=== PATIENT | male | born 1955 | race African-American/Black ===

== ENCOUNTER → 2018-02-15 | Day surgery (SDC) | payer BC ==
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
[2018-02-14 15:27] VITALS: BMI 25.2
[~2018-02-15] MED LIST: Clindamycin/D5W 900 mg/50 ml Premix Bag ONE; Fentanyl 100 MCG/2 ML VIAL ONE; Glycopyrrolate 0.2 MG/ML 5 ML SYRINGE ONE; Ketorolac Tromethamine 30 MG/ML VIAL ONE; Levofloxacin 500 mg/D5W 100 ml Premix Bag ONE; Lidocaine 1% PF 5 ML VIAL ONE; Metoclopramide HCl 10 MG/2 ML VIAL ONE; Ondansetron PF 4 MG/2 ML Vial ONE; PHENYLEPHRINE-NS 100 MCG/ML 10 ML SYRINGE ONE; PROPOFOL 200 MG/20 ML VIAL ONE; Sodium Chloride 0.9% 10 ML ONE; Thrombin 5000 UNITS/5 ML VIAL ONE; ePHEDrine/0.9% NaCl/PF SYRINGE 50 mg/10 ml ONE
[2018-02-15 12:10] LABS: #Basophils 0.1 thou/uL (0.0-0.2); #Eosinphils 0.3 thou/uL (0.0-0.7); #Lymphocytes 2.9 thou/uL (1.20-3.40); #Monocytes 0.6 thou/uL (0.11-0.59); #Neutrophils 5.9 thou/uL (1.40-6.50); %Basophils 1.1 % (0.0-1.0); %Eosinophils 3.5 % (0.0-10.0); %Monocytes 5.6 % (0.0-10.0); %Neutrophils 59.9 % (42.0-75.0); Hemoglobin 14.1 g/dL (14.0-18.0); Mean Corpuscular HGB CONC 32.8 g/dL (32.0-36.0); Mean Corpuscular Hemoglobin 30.2 pg (27.0-31.0); Mean Platelet Volume 7.7 fL (7.4-10.4); Platelet Count 224 thou/uL (130-400); RBC Distribution Width 11.3 % (11.5-14.5); Red Blood Cell (RBC) Count 4.69 mill/uL (4.70-6.10); White Blood Cell (WBC) Count 9.8 thou/uL (4.8-10.8)
[2018-02-15 12:17] LABS: INR-International Normal Ratio 0.9; PTT 29.1 SEC (22.9-36.1); Prothrombin Time 12.4 SEC (12.0-14.7)
[2018-02-15 12:32] LABS: Anion Gap 10 mmol/L (10-20); BUN (Urea Nitrogen) 10 mg/dL (8.4-25.7); Calc. Creatinine Clearance 86 mL/min (70-130); Calcium 9.5 mg/dL (7.8-10.44); Carbon Dioxide 30 mmol/L (23-31); Chloride 104 mmol/L (98-107); Estimated GFR-MDRD Greater than 90; Glucose 93 mg/dL (80-115); Potassium 3.7 mmol/L (3.5-5.1); Sodium 140 mmol/L (136-145)
--- NOTE | 2018-02-15 14:33 | EKG ---
Test Reason : PREOP Blood Pressure : / mmHG Vent. Rate : 063 BPM Atrial Rate : 063 BPM P-R Int : 190 ms QRS Dur : 082 ms QT Int : 410 ms P-R-T Axes : 068 062 124 degrees QTc Int : 419 ms Normal sinus rhythm Minimal voltage criteria for LVH, may be normal variant T wave abnormality, consider lateral ischemia Abnormal ECG No previous ECGs available Confirmed by ALFRED PENA, SNey ([id number]) on 02/15/2018 2:33:15 PM Referred By: HEYDI Confirmed By:DR. Elle SIMON MD
--- NOTE | 2018-02-16 00:47 | OP ---
DATE OF PROCEDURE: 02/15/2018 CONCRETE PAVEMENT INSTALLER: Melva Hernadez PA-C OPERATIVE INDICATION: PREOPERATIVE DIAGNOSIS: Left C8 radiculopathy from intervertebral disk disease at C7-T1. POSTOPERATIVE DIAGNOSIS: Left C8 radiculopathy from intervertebral disk disease at C7-T1. PROCEDURE PERFORMED: 1. Anterior cervical diskectomy. 2. Intervertebral arthrodesis. 3. Placement of intervertebral biomechanical device, local morcellized autograft and anterior cervical plating, C7-T1 and operating microscope. MEDICATIONS: 1. Clindamycin 900 mg IV. 2. Levaquin 500 mg IV. DRAINS: Zero. DRAIN TYPE: None. DESCRIPTION OF PROCEDURE: The patient was brought to the operating room. General endotracheal anesthesia was induced. The patient's head was carefully positioned into the [place], wedge-shaped headrest and a lateral fluoro radiograph was used to plan our incision. The right side of the neck was sterilely prepped and draped. We opened with a 10 blade knife, controlled the bleeding with bipolar and monopolar cautery. We dissected sharply through to the platysma and then cut this muscle in line with our incision. We continued our dissection medial to the sternocleidomastoid and lateral to the trachea and esophagus all the way down to the prevertebral space. We placed a marker at C6-C7, took a lateral fluoro-radiograph to confirm the level of spine which we were operating. We then elevated the longest colli muscles of the anterior cervix of C7 and T1 and placed a self-retaining retractor beneath them. We placed distraction pins at C7 and T1 and distracted across the intervening interspace with a [place] distractor. We incised the interspace with a 15 blade knife and removed the contents using curettes and rongeurs. The operating microscope was brought into the field. Under microscopic navigation and using microsurgical techniques, we removed the remainder of the intervertebral disk. We accessed the ventral epidural space with a microcurette and using a Kerrison rongeur, removed posterior osteophytes and posterior longitudinal ligament across the entire interspace from one neural foramen all the way to the other. After completion of our decompression, there was no further disk material in either foramen and the nerves were widely decompressed. We irrigated with bacitracin irrigation. We prepared the endplates for grafting using curettes and a bone rasp. We measured the height of the interspace to 7 mm. A 7 mm intervertebral graft was brought into the field. This PEEK intervertebral graft was loaded with demineralized bone matrix and morcellized autograft. The autograft was prepared in the back table from osteophytectomies. These osteophytes were cleaned of soft tissue attachments, morcellized, and added to demineralized bone matrix The PEEK graft was advanced in the interspace under radiographic guidance to the appropriate depth. We then removed our distraction pins. Operating microscope was taken out of the field. A 14 mm anterior cervical plate was brought into the field. We drilled bilateral holes through the plate into the vertebral segments of C7 and T1. We fixed the plates using 14 mm screws. Variable angle screws were used at C7 and fixed angle screws at T1. We engaged locking mechanism over each of other 4 screws. We irrigated copiously with bacitracin irrigation. AP and lateral fluoro radiographs confirmed adequate position of our instrumentation. We closed the wound in anatomical layers. We applied a sterile dressing. This is a clean case of contamination. Job ID: [id number]
== END ==
LOC: SDC 10:53
PROVIDERS: ATTEND Neurological Surgery
PROC: 0RG40A0 Fusion of Cervicothoracic Vertebral Joint with Interbody Fusion Device, Anterior Approach, Anterior Column, Open Approach (ICD-10-PCS; principal; 2018-02-15)
PROC: 0RT50ZZ Resection of Cervicothoracic Vertebral Disc, Open Approach (ICD-10-PCS; principal; 2018-02-15)
DX: M50.13 Cervical disc disorder with radiculopathy, cervicothoracic region (principal); I10 Essential (primary) hypertension; E78.00 Pure hypercholesterolemia, unspecified; C61 Malignant neoplasm of prostate; E11.36 Type 2 diabetes mellitus with diabetic cataract; K21.9 Gastro-esophageal reflux disease without esophagitis; F17.210 Nicotine dependence, cigarettes, uncomplicated; Z79.82 Long term (current) use of aspirin; Z79.84 Long term (current) use of oral hypoglycemic drugs; Z91.041 Radiographic dye allergy status; Z88.0 Allergy status to penicillin; Z91.013 Allergy to seafood; Z79.899 Other long term (current) drug therapy
CPT/HCPCS: 76001; 80048; 85025; 85610; 85730; 93005; 93010; C1713; C1776; J1885; J1956; J2001; J2405; J2704; J2765; J3010; J3490

== ENCOUNTER 2020-05-05 10:00 | Inpatient (IN) | payer MEDICARE, BC ==
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
[2020-05-19] MEDS ORDERED: Levofloxacin 500 mg/D5W 100 ml Premix Bag ONE (06:07)
[2020-05-19] MEDS ORDERED: Clindamycin/D5W 900 mg/50 ml Premix Bag ONE ×2 (06:07→17:32)
[2020-05-19] MEDS ORDERED: Bupivacaine PF 0.5% 30 ML VIAL ONE (06:09)
[2020-05-19] MEDS ORDERED: Thrombin 5000 UNITS/5 ML VIAL ONE (06:10)
[2020-05-19] MEDS ORDERED: EPINEPHrine 1 MG/ML AMP ONE (06:10)
[2020-05-19] MEDS ORDERED: Midazolam HCl 2 mg/2 ml Vial ONE (06:37)
[2020-05-19] MEDS ORDERED: Dexmedetomidine 200 MCG/2 ML VIAL ONE (06:40)
[2020-05-19] MEDS ORDERED: Fentanyl 250 MCG/5 ML VIAL ONE (06:40)
[2020-05-19] MEDS ORDERED: Ketamine 50 MG/ML (10ML VIAL) ONE (06:40)
[2020-05-19] MEDS ORDERED: Albumin 5% 500 ML ONE (06:41)
[2020-05-19 06:43] LABS: INR-International Normal Ratio 0.9; PTT 29.4 sec (22.9-36.1); Prothrombin Time 12.6 sec (12.0-14.7)
[2020-05-19] MEDS ORDERED: HYDROcodone/Acetaminophen 10/325 mg Tablet PO PRN (06:44)
[2020-05-19] MEDS ORDERED: Tamsulosin HCl 0.4 MG CAP PO PRN (06:46)
[2020-05-19] MEDS ORDERED: Acetaminophen 325 MG TAB PO PRN (06:46)
[2020-05-19] MEDS ORDERED: Scopolamine 1.5 mg/72 hour Patch TD PRN (06:46)
[2020-05-19] MEDS ORDERED: Promethazine 25 MG TAB PO PRN (06:46)
[2020-05-19] MEDS ORDERED: traMADol HCl 50 MG TAB PO PRN (06:46)
[2020-05-19] MEDS ORDERED: diphenhydrAMINE 25 MG CAP PO PRN (06:46)
[2020-05-19] MEDS ORDERED: Promethazine HCl 25 MG/ML VIAL IM PRN ×2 (06:46→12:14)
[2020-05-19] MEDS ORDERED: tiZANidine HCl 4 MG TAB PO PRN (06:46)
[2020-05-19 06:49] LABS: Anion Gap 13 mmol/L (10-20); BUN (Urea Nitrogen) 11 mg/dL (8.4-25.7); Calc. Creatinine Clearance 88 mL/min (70-130); Calcium 8.9 mg/dL (7.8-10.44); Carbon Dioxide 28 mmol/L (23-31); Chloride 104 mmol/L (98-107); Glucose 130 mg/dL (80-115); Potassium 4.3 mmol/L (3.5-5.1); Sodium 141 mmol/L (136-145)
[2020-05-19] MEDS ORDERED: Cyclobenzaprine 10 MG TAB PO PRN (07:55)
[2020-05-19] MEDS ORDERED: Phenylephrine 10 MG/ML VIAL ONE (08:26)
[2020-05-19] MEDS ORDERED: Dexamethasone 20 MG/5 ML VIAL ONE (10:02)
[2020-05-19] MEDS ORDERED: Lidocaine 1% PF 5 ML VIAL ONE (10:02)
[2020-05-19] MEDS ORDERED: PHENYLEPHRINE-NS 100 MCG/ML 10 ML SYRINGE ONE (10:02)
[2020-05-19] MEDS ORDERED: Vecuronium 10 MG VIAL ONE ×2 (10:02→11:29)
[2020-05-19] MEDS ORDERED: Rocuronium Bromide 10 MG/ML (10ML VIAL) ONE (10:02)
[2020-05-19] MEDS ORDERED: Ondansetron PF 4 MG/2 ML Vial ONE (10:02)
[2020-05-19] MEDS ORDERED: ePHEDrine 50 MG/ML VIAL ONE (10:02)
[2020-05-19] MEDS ORDERED: PROPOFOL 200 MG/20 ML VIAL ONE (10:02)
[2020-05-19] MEDS ORDERED: Metoclopramide HCl 10 MG/2 ML VIAL ONE (10:02)
[2020-05-19] MEDS ORDERED: SUGAMMADEX SODIUM 200 MG/2 ML VIAL ONE (11:59)
[2020-05-19] MEDS ORDERED: Morphine Sulfate 2 MG/ML SYRINGE SLOW IVP PRN (12:14)
[2020-05-19] MEDS ORDERED: HYDROmorphone 2 MG/ML VIAL SLOW IVP PRN (12:14)
[2020-05-19] MEDS ORDERED: Ondansetron HCl/PF 4 MG/2 ML Vial IVP PRN (12:14)
[2020-05-19] MEDS ORDERED: PACU-Morphine 4MG/ML VIAL SLOW IVP PRN (12:14)
[2020-05-19] MEDS ORDERED: Promethazine HCl 25 MG/ML VIAL SLOW IVP PRN (12:14)
--- NOTE | 2020-05-19 12:44 | OP ---
DATE OF PROCEDURE: 05/19/2020 REGULATORY COMPLIANCE DIRECTOR: BONIFACIO Posadas PREOPERATIVE INDICATION: Treat pain and prevent neurological deterioration. PREOPERATIVE DIAGNOSES: 1. L3-L4 lumbar stenosis with lateral recess disease and intervertebral disk herniation on the right. 2. L5-S1 foraminal stenosis from collapsed L5-S1 disk and pedicle on sacrum compression. POSTOPERATIVE DIAGNOSES: 1. L3-L4 lumbar stenosis with lateral recess disease and intervertebral disk herniation on the right. 2. L5-S1 foraminal stenosis from collapsed L5-S1 disk and pedicle on sacrum compression. PROCEDURES PERFORMED: 1. Decompressive laminectomy, medial facetectomy, foraminotomy at L3-L4. 2. Right L3-L4 microdiskectomy. 3. Decompressive laminectomy with wide foraminotomy at L5-S1. 4. Transforaminal lumbar interbody arthrodesis, L5-S1. 5. Pedicle screw and helena instrumentation, L5-S1. 6. Posterolateral arthrodesis, L5-S1. 7. Placement of intervertebral biomechanical device, L5-S1. 8. Local morselized autograft and morselized allograft. 9. Operating microscope. PREOPERATIVE MEDICATIONS: Levaquin 500 mg IV, clindamycin 900 mg IV. DRAIN NUMBER: Zero. DRAIN TYPE: None. DESCRIPTION OF PROCEDURE: The patient was brought to the operating room. General endotracheal anesthesia was induced. The patient was positioned prone on the Donnie frame with the appropriate padding for the chest and hips. A lateral fluoro radiograph was used to plan our incision. The lumbar skin was sterilely prepped and draped. We opened a midline incision with a 10 blade knife and we controlled bleeding with bipolar and monopolar cautery. We used monopolar cautery to dissect through subcutaneous tissues to the thoracodorsal fascia. We incised the fascia in the midline and reflected paraspinal muscles off the spinous process and the lamina of L3, L4, L5, and S1. Self-retaining retractors were placed. A lateral fluoro radiograph confirmed the levels upon which we were operating. We then turned our attention to L3-L4. He removed the L3 spinous process and the top of the L4 lamina. Kerrison rongeur was used to fashion a laminectomy. We widened our laminectomy defect to decompress the lateral recesses by performing medial facetectomies on both sides. We then brought the operating microscope into the field. Under microscopic magnification using microsurgical techniques, we carefully retracted the thecal sac medially from the right toward the midline. There was an intervertebral disk protrusion at the interspace and inferiorly migrated. We incised the protruding portion of the disk and removed disk contents using curettes and rongeurs. We released the L4 nerve root and there was no longer under any stretch. We irrigated bacitracin irrigation. A Jarvis ball probe was passed through the lateral recess and out of the spine with the L3 and L4 nerve roots and there was no compression. We turned our attention at L5-S1. We kept the operating microscope in. We removed the spinous process of L5 and the superior portion of the sacrum. We fashioned a laminectomy with Kerrison rongeurs and widen our laminectomy defect to decompress the S1 nerve roots and the lateral recess by performing medial facetectomies on both sides. We performed wide foraminotomies over the L5 nerve root. The left-sided L5 nerve root was very compressed between the pedicle of L5 and the top of the sacrum. We performed a complete facetectomy on this side and accessed the intervertebral space. We removed disk contents using curettes and rongeurs. We measured the height of the interspace to 8 mm with a rectangular bone rasp. We brought a PEEK intervertebral biomechanical device into the field. This was loaded with demineralized bone matrix and morselized autograft. The autograft was obtained from our laminectomy bone, which was cleaned of soft tissue attachments, morselized and added to demineralized bone matrix as our fusion substrate. With the PEEK device loaded with bone graft, it was advanced into the interspace under radiographic guidance to the appropriate depth. We turned our attention to pedicle screw instrumentation. Using bony anatomic landmarks, palpation of the medial portion of the pedicles, and a lateral fluoro radiograph as our guide, we chose entry points for pedicle screws at L5 and S1 bilaterally. This was done after removal of the microscope. We drilled out our entry points and used a bone awl to advance through the pedicles into the vertebral bodies. We tapped our trajectories with a threaded tap and probed them and found them completely encased in bone. We placed 6.5 mm diameter pedicle screws at L5 and S1 bilaterally. A 360-degree image set was generated with our isocentric C-arm. This confirmed adequate positioning of our pedicle screw instrumentation. We then irrigated in the posterior lateral recess on both sides with bacitracin irrigation. We decorticated the transverse process of L5 and the sacral ala on either side and over the decorticated bone, we left demineralized bone matrix, morselized autograft. This was our posterolateral fusion substrate. We brought rods into the field and dropped them into the screw heads. We tightened caps over the rods and using a torque/counter-torque mechanism, we ensured adequate tightness. We provided gentle compression across the interspace to keep our interbody graft in place prior to final tightening. We then irrigated the center wound with bacitracin irrigation. We infused local anesthetic in the paraspinal muscles. We closed the wound in anatomical layers after vancomycin powder was applied. This was a clean case, no contamination. Job ID: [id number]
[2020-05-19] MEDS ORDERED: Fentanyl 100 MCG/2 ML VIAL ONE ×2 (12:45→16:44)
[2020-05-19] MEDS ORDERED: HYDROmorphone 0.5 MG/0.5 ML SYRINGE ONE (13:44)
[2020-05-19] MEDS ORDERED: tiZANidine HCl 4 MG TAB ONE (14:09)
[2020-05-19] MEDS: Clindamycin/D5W 900 MG in Premix Bag 1 BAG IVPB SCH ×3 (17:40→23:13)
[2020-05-19 18:14] VITALS: BMI 26.5
[2020-05-19] MEDS: Sodium Chloride 0.9% 1,000 ML IV SCH (18:27)
[2020-05-19] MEDS: metFORMIN 500 MG TAB PO SCH ×2 (19:32→19:40)
[2020-05-19] MEDS: Glimepiride 2 MG TAB PO SCH (19:32)
[2020-05-19] MEDS: Potassium Chloride 10 MEQ TAB PO SCH (19:32)
[2020-05-19] MEDS: Amlodipine 5 MG TAB PO SCH ×2 (19:33→19:51)
[2020-05-19] MEDS: Lisinopril 20 MG TAB PO SCH ×2 (19:33→19:50)
[2020-05-19] MEDS: Metoprolol Tartrate 100 MG TAB PO SCH ×2 (19:33→20:00)
[2020-05-19] MEDS: Morphine 2 MG/ML VIAL SLOW IVP PRN (19:45)
[2020-05-19] MEDS ORDERED: Atorvastatin Calcium 20 MG TAB PO SCH (21:00)
[2020-05-20] MEDS: Sodium Chloride 0.9% 1,000 ML IV SCH ×2 (00:46→07:09)
[2020-05-20] MEDS: Morphine 2 MG/ML VIAL SLOW IVP PRN ×3 (01:06→09:30)
--- NOTE | 2020-05-20 07:23 | PRG ---
DATE OF SERVICE: 05/20/2020 I saw Nazario Perry in his hospital room this morning. He is one day out from decompression and fusion of lumbar spine. His back is sore, but he is not having any leg pain. I do not see any fevers recorded. Blood pressures have been in the 100s to 140s. There are no neurological deficits in the lower extremities. Mr. Perry will mobilize today. If he is safe for his activities of daily living, he can go home. Job ID: [id number]
[2020-05-20] MEDS: Amlodipine 5 MG TAB PO SCH (09:37)
[2020-05-20] MEDS: metFORMIN 500 MG TAB PO SCH ×2 (09:37→17:04)
[2020-05-20] MEDS: Glimepiride 2 MG TAB PO SCH (09:37)
[2020-05-20] MEDS: Potassium Chloride 10 MEQ TAB PO SCH (09:37)
[2020-05-20] MEDS: Metoprolol Tartrate 100 MG TAB PO SCH (09:38)
[2020-05-20] MEDS: Lisinopril 20 MG TAB PO SCH (09:38)
[2020-05-20 12:45] VITALS: BP 130/60; TEMP 98.7
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
[2020-05-20] MEDS: Hyoscyamine Sulfate SL 0.125 mg Tablet SL SCH ×2 (13:53→17:04)
[2020-05-20] MEDS ORDERED: Dextrose 5% in Water 1,000 ML IV PRN (14:26)
[2020-05-20] MEDS ORDERED: HumaLOG 300 UNITS/3 ML VIAL SC PRN ×2 (14:26)
[2020-05-20] MEDS ORDERED: Dextrose 50% Abboject 50 ML SYRINGE SLOW IVP PRN (14:26)
--- NOTE | 2020-05-21 11:40 | DIS ---
DATE OF ADMISSION: 05/19/2020 DATE OF DISCHARGE: 05/20/2020 HOSPITAL COURSE: Mr. Perry is a 64-year-old gentleman, who has a history of lower back pain for many years. He underwent a lumbar fusion. Following the surgery, he was transitioned to the Med/Surg floor, where his pain has been well controlled with p.o. medications. He is tolerating a regular diet, and he is voiding appropriately. He is otherwise doing well and ambulating easily in the hallways and feels that he is ready to go home today. On exam today, he is awake and alert, in no acute distress. He has free active range of motion of all extremities. No focal motor weakness. No reflex asymmetry. His incision is clean, dry, and intact. We will plan to dismiss the patient home, pending Physical Therapy's notes. I have discussed home care precautions with him. CONDITION ON DISCHARGE: The patient had no emergencies. Condition was stable for discharge. MEDICATIONS: Home going medications were reviewed. FOLLOWUP: Followup arrangements made by our managed care coordinator in the clinic and called to the patient. ACTIVITIES: Restrictions were reviewed in person. Wound care showers are acceptable. The patient should pat the incision dry, but not submerge it under the surface of the body of water for one month. Job ID: [id number]
== END 2020-05-20 18:44 | disposition home or self-care (01) | DRG 455 ==
LOC: SURG A 05-19 05:27 → ONC 05-19 17:55
PROVIDERS: ADMIT Neurological Surgery; ATTEND Emergency Medicine
PROC: 0SG30AJ Fusion of Lumbosacral Joint with Interbody Fusion Device, Posterior Approach, Anterior Column, Open Approach (ICD-10-PCS; principal; 2020-05-19)
PROC: 0SG3071 Fusion of Lumbosacral Joint with Autologous Tissue Substitute, Posterior Approach, Posterior Column, Open Approach (ICD-10-PCS; 2020-05-19)
PROC: 0SB20ZZ Excision of Lumbar Vertebral Disc, Open Approach (ICD-10-PCS; 2020-05-19)
PROC: 01NB0ZZ Release Lumbar Nerve, Open Approach (ICD-10-PCS; 2020-05-19)
DX: M48.07 Spinal stenosis, lumbosacral region (principal); M48.061 Spinal stenosis, lumbar region without neurogenic claudication; M51.26 Other intervertebral disc displacement, lumbar region; M51.16 Intervertebral disc disorders with radiculopathy, lumbar region; Z20.822 Contact with and (suspected) exposure to COVID-19; J30.2 Other seasonal allergic rhinitis; E78.00 Pure hypercholesterolemia, unspecified; G89.29 Other chronic pain; C61 Malignant neoplasm of prostate; E11.9 Type 2 diabetes mellitus without complications; I10 Essential (primary) hypertension; F41.9 Anxiety disorder, unspecified; F32.9 Major depressive disorder, single episode, unspecified; K21.9 Gastro-esophageal reflux disease without esophagitis; Z87.891 Personal history of nicotine dependence; Z79.84 Long term (current) use of oral hypoglycemic drugs; Z79.82 Long term (current) use of aspirin; Z79.899 Other long term (current) drug therapy; Z88.0 Allergy status to penicillin; Z91.041 Radiographic dye allergy status; Z91.013 Allergy to seafood
CPT/HCPCS: 36415; 36416; 76000; 80048; 85610; 85730; 86850; 86900; 86901; 93005; 93010; C1713; C1768; J0171; J1100; J1170; J1956; J2250; J2270; J2370; J2405; J2704; J2765; J3010; J3370; J3490; P9045; S0020

== ENCOUNTER 2020-05-14 15:30 | Outpatient (CLI) | payer MEDICARE, BC ==
[2020-05-14 15:52] LABS: Hemoglobin 13.4 g/dL (13.5-17.5); Mean Corpuscular HGB CONC 32.3 g/dL (32.0-36.0); Mean Platelet Volume 10.6 fl (7.4-10.4); Platelet Count 270 10x3/uL (150-450); RBC Distribution Width 12.2 % (11.5-14.5); Red Blood Cell (RBC) Count 4.46 10x6/uL (4.32-5.72); White Blood Cell (WBC) Count 8.7 10x3/uL (3.5-10.5)
[2020-05-15 01:57] LABS: SARS-CoV-2 PCR by NAA Not Detected (NotDetected)
== END 2020-05-14 15:31 | disposition home or self-care (01) ==
LOC: LABBT 15:30
PROVIDERS: ATTEND Neurological Surgery
DX: Z01.812 Encounter for preprocedural laboratory examination (principal); M51.16 Intervertebral disc disorders with radiculopathy, lumbar region; M48.061 Spinal stenosis, lumbar region without neurogenic claudication; M47.26 Other spondylosis with radiculopathy, lumbar region; Z20.822 Contact with and (suspected) exposure to COVID-19
CPT/HCPCS: 85027; U0003; U0005; 87635